=== PATIENT | female | born 1990 | race Caucasian/White ===

== ENCOUNTER 2016-09-25 16:32 | Emergency (ER) | payer SELFPAY ==
[2016-09-25 17:57] VITALS: BP 125/74
--- NOTE | 2016-09-25 18:27 | UC ---
Upper Extremity HPI - HPI Summary HPI Summary: The patient comes in today for: 1. 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 Palliative/provocative: Not moving it makes it better. 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 Quality: Dull at times, and stabbing at times. Region: Mid elbow all the way down to her ring finger. Severity: 08/19 Time: Constant Associated symptoms: Tingling: present from the ring finger up to the elbow. 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 This patient movement resulted in a "sudden jolt" of the left arm back towards her putting the elbow in flexion. Previous injuries: NOne. 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 Hx Last Menstrual Period: 08/27/16 - Allergies/Home Medications Allergies/Adverse Reactions: Allergies Allergy/AdvReac Type Severity Reaction Status Date / Time Hydrocodone Allergy Severe HALLUCINATIONS, Verified 09/25/16 17:50 VOMITING Oxycodone Allergy Severe HALLUCINATIONS, Verified 09/25/16 17:50 VOMITING Home Medications: Home Medications Ascorbic Acid [C 500] 500 mg PO DAILY 09/25/16 [History Confirmed 09/25/16] Multiple Vitamins W/ Minerals [Multivitamin Adults] 1 tab PO DAILY 09/25/16 [ History Confirmed 09/25/16] PMH/Surg Hx/FS Hx/Imm Hx Previously Healthy: Yes Endocrine History Of: Denies: Diabetes, Thyroid Disease, Hyperthyroidism, Hypothyroidism, Dyslipidemia Cardiovascular History Of: Reports: Cardiac Disorders - Benign heart murmur. Echo done 2-3 years ago--all "benign." Denies: Hypertension, Pacemaker/ICD, Myocardial Infarction, Congestive Heart Failure, Atrial Fibrillation, Deep Vein Thrombosis, Bleeding Disorders Respiratory History Of: Denies: COPD, Asthma, Bronchitis, Pneumonia, Pulmonary Embolism GI/ History Of: Denies: Gastroesophageal Reflux, Ulcer, Gastrointestinal Bleed, Gall Bladder Disease, Kidney Stones, Diverticulitis, Renal Disease, Urosepsis Neurological History Of: Denies: TIA, CVA, Dementia, Seizures, Migraine Psychological History Of: Denies: Anxiety, Depression, Bipolar Disorder, Schizophrenia, Post Traumatic Stress Disorder Cancer History Of: Denies: Lung Cancer, Colorectal Cancer, Breast Cancer, Prostate Cancer, Cervical Cancer Other History Of: Negative For: HIV, Hepatitis B, Hepatitis C, Anticoagulant Therapy - Surgical History Surgical History: Yes Surgery Procedure, Year, and Place: TONSILLECTOMY, WISDOM TEETH EXTRACTIONS - Family History Known Family History: Negative: Cardiac Disease, Hypertension - Social History Occupation: Employed Full-time Alcohol Use: Occasionally Substance Use Type: None Smoking Status (MU): Never Smoked Tobacco Review of Systems Constitutional: Negative Skin: Negative Eyes: Negative ENT: Negative Respiratory: Negative Cardiovascular: Negative Gastrointestinal: Negative Genitourinary: Negative Musculoskeletal: Arthralgia All Other Systems Reviewed And Are Negative: Yes Physical Exam Triage Information Reviewed: Yes Appearance: Well-Appearing, No Pain Distress, Well-Nourished Vital Signs: Initial Vital Signs Temp 98.6 F 09/25/16 17:51 Pulse 76 09/25/16 17:51 Resp 20 09/25/16 17:51 BP 125/74 09/25/16 17:51 Pulse Ox 98 09/25/16 17:51 Eyes: Positive: Conjunctiva Clear. Negative: Discharge ENT: Positive: Hearing grossly normal. Negative: Pharyngeal erythema, Nasal congestion, Nasal drainage, TM bulging, TM dull, TM red, Tonsillar swelling, Tonsillar exudate Dental: Negative: Gross Decay/Caries @, Dental Fracture @ Neck: Negative: Supple, Nontender, No Lymphadenopathy, Nuchal Rigidity Respiratory: Positive: Chest non-tender, Lungs clear, No respiratory distress, No accessory muscle use. Negative: Crackles, Wheezing Cardiovascular: Positive: RRR, No Murmur, Pulses Normal Abdomen Description: Positive: Nontender, No Organomegaly, Soft. Negative: Distended, Guarding Musculoskeletal: Positive: Strength Intact, ROM Intact, No Edema, Other: - Left arm: No deformity or misalignment. There is no ecchymosis or erthema. There is full range of motion of the wrist and elbow. There is tednerness of the olecranon bursa and slight tenderness of palpation of the medial and lateral epicondyle. There radial pulse is 2+/2 x 2. DTR were 1+/2 x 2 bilaterally for the triceps, biceps, and brachioradialis. Surface To Air Weapons Officer strength was slightly less on the left. The thumb-enclosed fist, "OK" sign and "thumbs-up" sign were all normal. Neurological: Positive: Alert, Muscle Tone Normal Psychological: Positive: Age Appropriate Behavior, Consolable Skin: Negative: rashes, breakdown Upper Extremity Course/Dx - Course Course Of Treatment: Patient was told that she has symptoms of multiple problems (olecranon bursitis, medial and lateral epicondyllitis, CTS and possibly Ulnar tunnel syndrome). But, she was told to try a cock-up splint and NSAIDS with a repeat evaluation in 3 days. - Differential Dx/Diagnosis Differential Diagnosis/HQI/PQRI: Contusion Provider Diagnoses: Left arm pain, weakness (olecranon bursitis, medial and lateral epicondylitis, carpal tunnel syndrome). Discharge - Discharge Plan Condition: Stable Disposition: HOME Patient Education Materials: Elbow Bursitis (ED), Tendinitis (ED) Forms: *Work Release Referrals: Gia Santo PA [Primary Care Provider] - 1 Week (See your primary care provider or us after several days to about a week to see how well you are doing. If you get worse please be seen sooner.)
== END 2016-09-25 19:11 | disposition home or self-care (01) ==
LOC: UCCORT 16:32
DX: M79.602 Pain in left arm (principal); R53.1 Weakness; R01.1 Cardiac murmur, unspecified
CPT/HCPCS: 99213; G0463

== ENCOUNTER 2016-09-29 20:14 | Emergency (ER) | payer SELFPAY ==
[2016-09-29 20:43] VITALS: BP 118/69
--- NOTE | 2016-09-29 21:53 | RAD ---
INDICATION: Left elbow injury COMPARISON: None TECHNIQUE: AP, lateral, and oblique views were obtained. FINDINGS: The bony structures, joint spaces, and soft tissues are normal for age. IMPRESSION: NEGATIVE EXAMINATION.
--- NOTE | 2016-09-29 21:54 | RAD ---
INDICATION: Left wrist injury COMPARISON: None TECHNIQUE: AP, lateral, and oblique views were obtained. FINDINGS: There is no acute fracture or dislocation. There is no appreciable soft tissue swelling. Incidental note is made of a mild ulnar minus variant. IMPRESSION: NO ACUTE BONY FINDINGS.
--- NOTE | 2016-09-29 22:08 | UC ---
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 PAIN IN ELBOW AND WRIST HAVE NOT IMPROVED SINCE TIME OF INJURY AND WITH IMMOBILIZATION WITH SPLINT. - History of Current Complaint Chief Complaint: UCUpperExtremity Stated Complaint: LEFT HAND WEAKNESS WC RECHECK Time Seen by Provider: 09/29/16 20:54 Hx Obtained From: Patient, Family/Olive Pitter Hx Last Menstrual Period: 08/27/16 Onset/Duration: Sudden Onset, Lasting Days, Still Present Onset Of Pain: Post Accident Severity Initially: Moderate Severity Currently: Moderate Mechanism Of Injury: Twisted Aggravating Factor(s): Movement Alleviating Factor(s): Compression, Ice, Rest Associated Signs And Symptoms: Positive: Swelling Related History: Positive: Occupational Injury - Risk Factors Penetrating Injury Risk Factors: Negative - Allergies/Home Medications Allergies/Adverse Reactions: Allergies Allergy/AdvReac Type Severity Reaction Status Date / Time Hydrocodone Allergy Severe HALLUCINATIONS, Verified 09/29/16 20:34 VOMITING Oxycodone Allergy Severe HALLUCINATIONS, Verified 09/29/16 20:34 VOMITING PMH/Surg Hx/FS Hx/Imm Hx Previously Healthy: Yes Endocrine History Of: Denies: Diabetes, Thyroid Disease, Hyperthyroidism, Hypothyroidism, Dyslipidemia Cardiovascular History Of: Reports: Cardiac Disorders - Benign heart murmur. Echo done 2-3 years ago--all "benign." Denies: Hypertension, Pacemaker/ICD, Myocardial Infarction, Congestive Heart Failure, Atrial Fibrillation, Deep Vein Thrombosis, Bleeding Disorders Respiratory History Of: Denies: COPD, Asthma, Bronchitis, Pneumonia, Pulmonary Embolism GI/ History Of: Denies: Gastroesophageal Reflux, Ulcer, Gastrointestinal Bleed, Gall Bladder Disease, Kidney Stones, Diverticulitis, Renal Disease, Urosepsis Neurological History Of: Denies: TIA, CVA, Dementia, Seizures, Migraine Psychological History Of: Denies: Anxiety, Depression, Bipolar Disorder, Schizophrenia, Post Traumatic Stress Disorder Cancer History Of: Denies: Lung Cancer, Colorectal Cancer, Breast Cancer, Prostate Cancer, Cervical Cancer Other History Of: Negative For: HIV, Hepatitis B, Hepatitis C, Anticoagulant Therapy - Surgical History Surgical History: Yes Surgery Procedure, Year, and Place: TONSILLECTOMY, WISDOM TEETH EXTRACTIONS - Family History Known Family History: Positive: None Negative: Cardiac Disease, Hypertension - Social History Occupation: Employed Full-time Lives: With Family Alcohol Use: Occasionally Substance Use Type: None Smoking Status (MU): Never Smoked Tobacco Review of Systems Constitutional: Negative Skin: Negative Eyes: Negative ENT: Negative Respiratory: Negative Cardiovascular: Negative Gastrointestinal: Negative Genitourinary: Negative Motor: Negative Neurovascular: Negative Musculoskeletal: Arthralgia, Myalgia Neurological: Negative Psychological: Negative All Other Systems Reviewed And Are Negative: Yes Physical Exam Triage Information Reviewed: Yes Appearance: Well-Appearing, No Pain Distress, Well-Nourished Vital Signs: Initial Vital Signs Temp 98.5 F 09/29/16 20:35 Pulse 86 09/29/16 20:35 Resp 16 09/29/16 20:35 BP 118/69 09/29/16 20:35 Pulse Ox 99 09/29/16 20:35 Vital Signs Reviewed: Yes Eye Exam: Normal ENT Exam: Normal ENT: Positive: Normal ENT inspection Dental Exam: Normal Neck exam: Normal Respiratory Exam: Normal Respiratory: Positive: Chest non-tender, Lungs clear, Normal breath sounds, No respiratory distress Cardiovascular Exam: Normal Cardiovascular: Positive: RRR, No Murmur, Pulses Normal Abdominal Exam: Normal Musculoskeletal: Positive: Strength Limited @ - 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 LEFT WRIST SPRAIN Discharge - Discharge Plan Condition: Stable Disposition: HOME Patient Education Materials: Cubital Tunnel Syndrome (ED), Tendinitis (ED) Forms: *Work Release Referrals: Jamie Henry MD [Medical Doctor] - Reva Ayala MD [Medical Doctor] - DEACON Preston [Primary Care Provider] - Additional Instructions: PHYSICAL THERAPY REFERRAL: You have been prescribed physical therapy. Treatments may include stretching, exercise, application of heat or cold, and other modalities. After an injury, PT can reduce swelling and pain. In recovery, PT is used to restore mobility and strength. Your specific treatment goals are: ___X__ Reduction of Swelling (EGS, US, ice as needed) ___X__ Pain Reduction (EGS, US, ice as needed) TENS Pack Fitting and Instruction Wound Hydrotherapy ___X__ Preservation of Mobility ___X__ Latter-Day of Mobility ___X__ Strength Latter-Day ___X__ Work or Sports Hardening This instruction sheet also serves as your PHYSICAL THERAPY REFERRAL! Please take it with you to the therapist, so he/she will be aware of your diagnosis and treatment plan. You may see the physical therapist of your choice for these treatments, but may wish to check with your insurance to be sure the provider you select is covered. It's important to see the doctor to whom you have been referred for follow up.
== END 2016-09-29 22:05 | disposition home or self-care (01) ==
LOC: UCCORT 20:14
DX: M77.12 Lateral epicondylitis, left elbow (principal); S63.502A Unspecified sprain of left wrist, initial encounter; X50.0XXA Overexertion from strenuous movement or load, initial encounter; Y93.F2 Activity, caregiving, lifting; Y92.230 Patient room in hospital as the place of occurrence of the external cause; Y99.0 Civilian activity done for income or pay
CPT/HCPCS: 84702; 99211; G0463

== ENCOUNTER 2017-08-25 06:14 | Day surgery (SDC) | payer OTHER ==
[~2017-08-25 06:14] MED LIST: Acetaminophen TAB* 325 MG PO PRN; Buffered Lidocaine 0.9% SYRIN* 5 ML/SYR SYRINGE INTRADERM ONE; DiMENhydriNATE IV* 50 MG/ML VIAL IV PUSH PRN; Famotidine TAB* 20 MG PO ONE; Morphine INJ* 2 MG/ML 1 ML CARPUJECT IV PRN; Naloxone* 0.4 MG/ML 1 ML VIAL IV PRN; PROCHLORPERAZINE INJ 5 MG/ML 2 ML VIAL IV PRN; Scopolamine 1.5 mg* PATCH TRANSDERM ONE; fentaNYL* 50 MCG/ML 2 ML VIAL (100 MCG VIAL) IV PRN
[2017-08-25] MEDS ORDERED: Famotidine TAB* 20 MG ONE (06:17)
[2017-08-25] MEDS ORDERED: Scopolamine 1.5 mg* PATCH ONE (06:17)
[2017-08-25] MEDS ORDERED: ceFAZolin 2 GM PREMIX (*) 2 GM/50 ML BAG IVPB ONE (06:17)
[2017-08-25] MEDS ORDERED: Bupivacaine 0.25% SDV* 30 ML ONE (06:45)
[2017-08-25] MEDS ORDERED: Midazolam* 1 MG/ML 5 ML VIAL (5 MG) ONE (07:17)
[2017-08-25] MEDS ORDERED: fentaNYL* 50 MCG/ML 2 ML VIAL (100 MCG VIAL) ONE ×2 (07:17→07:42)
[2017-08-25] MEDS ORDERED: Ondansetron INJ* 2 MG/ML VIAL ONE (07:53)
[2017-08-25] MEDS ORDERED: Propofol* 10 MG/ML 20 ML BTL IV PUSH ONE (07:53)
[2017-08-25] MEDS ORDERED: Dexamethasone IV* 4 MG/ML 1 ML (4 MG) ONE (07:53)
[2017-08-25] MEDS ORDERED: Ketorolac INJ* 30 MG/ML 1 ML VIAL ONE (07:53)
[2017-08-25] MEDS ORDERED: PROCHLORPERAZINE INJ 5 MG/ML 2 ML VIAL ONE (07:53)
[2017-08-25] MEDS ORDERED: Lidocaine 2% PF * 5 ML VIAL ONE (07:53)
[2017-08-25] MEDS ORDERED: traMADol TAB* 50 MG ONE (08:17)
[2017-08-25 09:08] VITALS: BP 120/67
--- NOTE | 2017-08-25 09:28 | OP ---
OPERATIVE REPORT: DATE OF OPERATION: 08/25/17 DATE OF : [birth year] SURGEON: Baldomero Tellez MD PRESIDENT & FOUNDER: CRISTIANA Guevara An entry level administrative assistant was needed for the procedure to aid in positioning of the arm and retraction. ANESTHESIOLOGIST: Dr. Giordano. ANESTHESIA: General. PRE-OP DIAGNOSIS: Left cubital tunnel syndrome. POST-OP DIAGNOSIS: Left cubital tunnel syndrome. OPERATIVE PROCEDURE: Left in situ cubital tunnel release. INDICATIONS: Ana Luisa is 27. She has had pretty severe ulnar nerve symptoms affecting consisting of pos teromedial elbow pain that radiates down into the ulnar 2 digits with significant numbness and tingli ng in those 2 fingers. We had talked about her treatment options. She wants to proceed with the dec ompression. She understands risks and benefits and risk of nerve injury and wound problems as well a s recurrent symptoms. ESTIMATED BLOOD LOSS: 2 mL. COMPLICATIONS: None. FINDINGS: As expected. DESCRIPTION OF PROCEDURE: Ana Luisa was seen in the preoperative holding area. The correct side, site, a nd procedure were identified. We came back to the operating room, where the arm was prepped and drap ed in the usual fashion. A time-out was performed. The arm was exsanguinated with the Esmarch and the tourniquet was inflated to 250 mmHg. I made a cur vilinear incision centered over Johnston's ligament. Dissection was carried down with the Bovie and t he knife and tenotomy scissors. The medial antebrachial cutaneous nerve was identified and protected throughout the case. I then started the decompression just proximal to Johnston's ligament and exten ded it proximally, placed in an appendiceal for proximal retraction. The fascia overlying the nerve was released to all past the arcade of [place]. I then came distally and released Johnston's ligame nt and released the superficial FCU fascia. The 2 edges of the FCU were split and then the subfacial layer was released throughout in its entirety. There was a vascular arcade that traverse the nerve and origin of the FCU fascia which I mobilized and cauterized. Once the nerve release was complete a nd there was absolutely no compression on the nerve, I performed a slight neurolysis to mobilize it f rom the adherent fascial tissue surrounding it. I then flexed and extended the elbow, it did not sub luxate, so we irrigated out the wound. Hemostasis was obtained with the Bovie. The subcutaneous tiss ue was reapproximated with 3-0 Vicryl. Skin was closed with 3-0 Monocryl and Steri-Strips. The woun d was infiltrated with 0.25% plain Marcaine and then the wound was dressed with Xeroform, 4x4, ABD st erile Webril, and BRAYDON bandages. She was woke up and taken to the recovery room in stable condition. [id number] #: [id number]
[2017-08-28] MEDS ORDERED: Scopolamine PATCH Remove* 1 NOTE MISC PATCH OFF ONE (06:00)
== END 2017-08-25 09:31 | disposition home or self-care (01) ==
LOC: OR 06:14
PROVIDERS: ATTEND Orthopaedic Surgery Hand Surgery
DX: G56.22 Lesion of ulnar nerve, left upper limb (principal)
CPT/HCPCS: 81025; A9270-GY; J0690; J0780; J1100; J1885; J2250; J2405; J2704; J3010

== ENCOUNTER 2018-04-14 09:05 | Emergency (ER) | payer BC, OTHER ==
[2018-04-14 09:51] VITALS: BP 132/78
--- NOTE | 2018-04-14 10:34 | UC ---
Abdominal Pain Female HPI - HPI Summary HPI Summary: nausea and vomiting x 3 days no fever, + chills, diarrhea , no constipation no more vomiting , cont. to have diarrhea no abdominal pain , no urinary symptoms - History of Current Complaint Chief Complaint: UCGI Stated Complaint: NAUSEA,VOMITTING,DIARRHEA Time Seen by Provider: 04/14/18 09:51 Hx Obtained From: Patient Hx Last Menstrual Period: 03/26/18 ?: No Onset/Duration: Gradual Onset, Lasting Days - 3, Still Present Timing: Constant Severity Initially: Moderate Severity Currently: Moderate Pain Intensity: 0 Pain Scale Used: 0-10 Numeric Location: Diffuse Radiates: No Character: Cramping Aggravating Factor(s): Food Alleviating Factor(s): Nothing Associated Signs and Symptoms: Positive: Nausea, Vomiting, Diarrhea. Negative: Diaphoresis, Fever, Cough, Chest Pain, Dizzy, Back Pain, Constipation Allergies/Adverse Reactions: Allergies Allergy/AdvReac Type Severity Reaction Status Date / Time hydrocodone Allergy HALLUCINATIONS, Verified 04/14/18 09:48 VOMITING oxycodone Allergy HALLUCINATIONS, Verified 04/14/18 09:48 VOMITING PMH/Surg Hx/FS Hx/Imm Hx Previously Healthy: Yes Other History Of: Negative For: HIV, Hepatitis B, Hepatitis C, Anticoagulant Therapy - Surgical History Surgical History: Yes Surgery Procedure, Year, and Place: TONSILLECTOMY, WISDOM TEETH EXTRACTIONS. MOLE REMOVAL WITH LOCAL ANESTHESIA. left ulnar nerves surgery - Family History Known Family History: Positive: None Negative: Cardiac Disease, Hypertension - Social History Alcohol Use: Occasionally Substance Use Type: None Smoking Status (MU): Never Smoked Tobacco Have You Smoked in the Last Year: No Review of Systems All Other Systems Reviewed And Are Negative: Yes Constitutional: Positive: Negative Skin: Positive: Negative Eyes: Positive: Negative ENT: Positive: Negative Respiratory: Positive: Negative Gastrointestinal: Positive: Negative, Vomiting, Diarrhea, Nausea Genitourinary: Positive: Negative Is Patient Immunocompromised?: No Physical Exam Triage Information Reviewed: Yes Appearance: Well-Appearing, No Pain Distress, Well-Nourished Vital Signs: Initial Vital Signs Temp 97.8 F 04/14/18 09:46 Pulse 78 04/14/18 09:46 Resp 15 04/14/18 09:46 BP 132/78 04/14/18 09:46 Pulse Ox 98 12/04/18 09:46 Vital Signs Reviewed: Yes Eye Exam: Normal Eyes: Positive: Conjunctiva Clear ENT: Positive: Normal ENT inspection, Hearing grossly normal, Pharynx normal Neck: Positive: Supple, Nontender, No Lymphadenopathy Respiratory: Positive: Chest non-tender, Lungs clear, Normal breath sounds, No respiratory distress Cardiovascular: Positive: RRR, No Murmur, Pulses Normal Abdomen Description: Positive: Nontender, Soft. Negative: CVA Tenderness (R), CVA Tenderness (L), Distended, Guarding Bowel Sounds: Positive: Present Skin Exam: Normal Abd Pain Female Course/Dx - Differential Dx/Diagnosis Provider Diagnosis: Gastroenteritis Discharge - Sign-Out/Discharge Documenting (check all that apply): Patient Departure All imaging exams completed and their final reports reviewed: No Studies - Discharge Plan Condition: Stable Disposition: HOME Patient Education Materials: Acute Diarrhea (ED) Forms: *Work Release Referrals: Radha Anne [Primary Care Provider] - If Needed - Billing Disposition and Condition Condition: STABLE Disposition: Home
== END 2018-04-14 10:02 | disposition home or self-care (01) ==
LOC: UCCORT 09:05
DX: K52.9 Noninfective gastroenteritis and colitis, unspecified (principal); Z88.5 Allergy status to narcotic agent
CPT/HCPCS: 99211; G0463

== ENCOUNTER 2019-05-07 16:26 | Emergency (ER) | payer BC, OTHER ==
[2019-05-07 18:03] VITALS: BP 124/70
--- NOTE | 2019-05-07 18:09 | UC ---
Head Injury HPI - HPI Summary HPI Summary: Today 1415 pt hit top of head on metal part of oxygen gauge/suction at work. Pt c/o feeling headache, nausea and dizzy since head injury; dizzyness worse w/ movement. Nothing taken for pain. - History Of Current Complaint Chief Complaint: UCHeadInjury Stated Complaint: HEAD INJURY Time Seen by Provider: 05/07/19 18:07 Hx Obtained From: Patient Hx Last Menstrual Period: 04/26/19 ?: No Onset/Duration: Sudden Onset, Lasting Hours Severity Currently: Moderate Severity Initially: Moderate Pain Intensity: 4 Associated Signs And Symptoms: Positive: Nausea - Allergies/Home Medications Allergies/Adverse Reactions: Allergies Allergy/AdvReac Type Severity Reaction Status Date / Time hydrocodone Allergy HALLUCINATIONS, Verified 05/07/19 17:57 VOMITING oxycodone Allergy HALLUCINATIONS, Verified 05/07/19 17:57 VOMITING Home Medications: Home Medications NK [No Home Medications Reported] 05/07/19 [History Confirmed 05/07/19] PMH/Surg Hx/FS Hx/Imm Hx Previously Healthy: Yes Other History Of: Negative For: HIV, Hepatitis B, Hepatitis C, Anticoagulant Therapy - Surgical History Surgical History: Yes Surgery Procedure, Year, and Place: TONSILLECTOMY, WISDOM TEETH EXTRACTIONS. MOLE REMOVAL WITH LOCAL ANESTHESIA. left ulnar nerves surgery - Family History Known Family History: Positive: None Negative: Cardiac Disease, Hypertension - Social History Alcohol Use: Occasionally Substance Use Type: None Smoking Status (MU): Never Smoked Tobacco Have You Smoked in the Last Year: No Review of Systems All Other Systems Reviewed And Are Negative: Yes Gastrointestinal: Positive: Nausea Neurological: Positive: Headache Is Patient Immunocompromised?: No Physical Exam Triage Information Reviewed: Yes Appearance: Well-Nourished, Ill-Appearing, Pain Distress Vital Signs: Initial Vital Signs Temp 97.4 F 05/07/19 17:58 Pulse 74 05/07/19 17:58 Resp 16 05/07/19 17:58 BP 124/70 05/07/19 17:58 Pulse Ox 97 05/07/19 17:58 Vital Signs Reviewed: Yes Eye Exam: Normal ENT Exam: Normal Dental Exam: Normal Neck exam: Normal Respiratory Exam: Normal Respiratory: Positive: Chest non-tender, Lungs clear, Normal breath sounds Cardiovascular Exam: Normal Abdominal Exam: Normal Musculoskeletal Exam: Normal Neurological Exam: Other - positive Rhomberg, PERRLA, EMOI intact but movements increase nausea. pain on the top of the head, no cervical tenderness. cranial nerves intact Psychological Exam: Normal Skin Exam: Normal Head Injury Course/Dx - Course Course Of Treatment: hx btained, exam performed ,meds reviewed, patient exam was positive for signs and symptoms of concussion. advised to take next few days off and follow up with [facility] medicine concussion clinic if not improving. - Differential Dx/Diagnosis Differential Diagnosis/HQI/PQRI: Concussion Without LOC Provider Diagnosis: Concussion Discharge ED - Sign-Out/Discharge Documenting (check all that apply): Patient Departure All imaging exams completed and their final reports reviewed: No Studies - Discharge Plan Condition: Stable Disposition: HOME Patient Education Materials: Concussion (ED) Forms: *Work Release Referrals: Tamiko Busch MD [Primary Care Provider] - Additional Instructions: 1. take the time off you need to recover. I have given a note for the next 48 hours. 2. Any signs and symptoms beyond the 48 hours please follow up with the Concussion clinic at sports medicine 3. dark quiet space, no screen time, rest. 4. Follow up in ER if symtpoms worsen in the next 48 hours - Billing Disposition and Condition Condition: STABLE Disposition: Home
== END 2019-05-07 18:39 | disposition home or self-care (01) ==
LOC: UCCORT 16:26
DX: S06.0X0A Concussion without loss of consciousness, initial encounter (principal); Z88.5 Allergy status to narcotic agent; W22.09XA Striking against other stationary object, initial encounter; Y92.9 Unspecified place or not applicable; Y99.0 Civilian activity done for income or pay
CPT/HCPCS: 99212; G0463

== ENCOUNTER 2019-07-22 08:45 | Day surgery (SDC) | payer BC, OTHER ==
[~2019-07-22 08:45] MED LIST changes: +Acetaminophen TAB* 325 MG ONE; +Acetaminophen TAB* 325 MG PO ONE; -Acetaminophen TAB* 325 MG PO PRN; -Buffered Lidocaine 0.9% SYRIN* 5 ML/SYR SYRINGE INTRADERM ONE; +Buffered Lidocaine 1% SYRIN* 1 ML/SYRINGE INTRADERM ONE; -DiMENhydriNATE IV* 50 MG/ML VIAL IV PUSH PRN; +Famotidine IV* 10 MG/ML 2 ML (20 mg) IV ONE; +Famotidine IV* 10 MG/ML 2 ML (20 mg) ONE; -Famotidine TAB* 20 MG PO ONE; +Gabapentin CAP(*) 300 MG ONE; +Gabapentin CAP(*) 300 MG PO ONE; +Lactated Ringers 1000 ML Bag* 1,000 ML IV SCH; -Morphine INJ* 2 MG/ML 1 ML CARPUJECT IV PRN; -Naloxone* 0.4 MG/ML 1 ML VIAL IV PRN; -PROCHLORPERAZINE INJ 5 MG/ML 2 ML VIAL IV PRN; -Scopolamine 1.5 mg* PATCH TRANSDERM ONE; -fentaNYL* 50 MCG/ML 2 ML VIAL (100 MCG VIAL) IV PRN
[2019-07-22] MEDS ORDERED: ceFAZolin 2 GM PREMIX in ORs 2 GM/50 ML BAG ONE (08:55)
[2019-07-22] MEDS ORDERED: Scopolamine 1.5 mg* PATCH ONE (09:11)
[2019-07-22] MEDS ORDERED: diPHENhydraMINE IV* 50 MG/ML 1 ml VIAL (BENADRYL) IV PRN (09:16)
[2019-07-22] MEDS ORDERED: DiMENhydriNATE IV* 50 MG/ML VIAL IV PUSH PRN (09:16)
[2019-07-22] MEDS ORDERED: Levalbuterol 0.63MG/3ML NEB* UNIT OF USE INH PRN (09:16)
[2019-07-22] MEDS ORDERED: Naloxone* 0.4 MG/ML 1 ML VIAL IV PRN (09:16)
[2019-07-22] MEDS ORDERED: Ondansetron INJ* 2 MG/ML VIAL IV PRN (09:16)
[2019-07-22] MEDS ORDERED: PROCHLORPERAZINE INJ 5 MG/ML 2 ML VIAL IV PRN (09:16)
[2019-07-22] MEDS ORDERED: Midazolam* 1 MG/ML 2 ML VIAL (2 MG) ONE (09:28)
[2019-07-22] MEDS ORDERED: fentaNYL* 50 MCG/ML 2 ML VIAL (100 MCG VIAL) ONE ×4 (09:28→12:01)
[2019-07-22] MEDS ORDERED: Bupivacaine 0.25% SDV* 30 ML ONE (09:52)
[2019-07-22] MEDS ORDERED: Scopolamine 1.5 mg* PATCH TRANSDERM SCH (10:00)
[2019-07-22] MEDS ORDERED: Scopolamine PATCH Remove* 1 NOTE MISC PATCH OFF SCH (10:00)
[2019-07-22] MEDS ORDERED: Lidocaine 2% PF * 5 ML VIAL ONE (10:14)
[2019-07-22] MEDS ORDERED: Ketorolac INJ* 30 MG/ML 1 ML VIAL ONE (10:24)
[2019-07-22] MEDS ORDERED: Ondansetron INJ* 2 MG/ML VIAL ONE (10:24)
[2019-07-22] MEDS ORDERED: Dexamethasone IV* 4 MG/ML 1 ML (4 MG) ONE (10:24)
[2019-07-22] MEDS ORDERED: Propofol* 10 MG/ML 20 ML BTL ONE (10:24)
[2019-07-22] MEDS ORDERED: traMADol TAB* 50 MG ONE (11:47)
[2019-07-22] MEDS: fentaNYL* 50 MCG/ML 2 ML VIAL (100 MCG VIAL) IV PRN ×3 (11:53→12:45)
[2019-07-22 13:37] VITALS: BP 117/64
--- NOTE | 2019-07-22 21:58 | OP ---
DATE OF OPERATION: 07/22/19 - [facility] DATE OF : 89 SURGEON: Baldomero Tellez MD. SHELLFISH MEAT SEPARATOR OPERATOR: CRISTIANA Guevara. An video production assistant was needed for the procedure to aid in positioning of the arm and retraction. ANESTHESIOLOGIST: Dr. Machado. ANESTHESIA: General. PRE-OP DIAGNOSIS: Left ulnar nerve neuritis and instability, status post prior in situ decompression. POST-OP DIAGNOSIS: Left ulnar nerve neuritis and instability, status post prior in situ decompression. OPERATIVE PROCEDURE: Left ulnar nerve anterior transmuscular transposition. INDICATIONS: Ms. Thomas had an in situ decompression. She has gone on to have painful instability and neuritis in the nerve. We talked about treatment options. I told her the treatment for this is to revise it, do a transposition. She understands there are risks associated with this and she wants to proceed with surgery. She understands she could have persistent neuritis or ulnar nerve injury or other complications. ESTIMATED BLOOD LOSS: 2 mL. COMPLICATIONS: None. FINDINGS: See above and below. DESCRIPTION OF PROCEDURE: Ms. Thomas was seen in the preoperative holding area. The correct side, site, and procedure were identified. We came back to the operating room. The arm was prepped and draped in the usual fashion and a time-out was performed. The arm was exsanguinated with the Esmarch and the tourniquet was inflated. I utilized her prior incision and made it just a little longer proximally and distally. Dissection was carried down through the subcutaneous tissue. The medial antebrachial cutaneous nerve was identified and protected throughout. The nerve was seen draped over and pursed up and draped over the medial epicondyle. I started the decompression proximally. I went ahead and released the fascia overlying the nerve past the arcade of Swink and it from the scar tissue and did that all the way down through the two heads of the FCU and through the subfascial layer of the FCU, which was very scarred. The medial intermuscular septum was then excised. The leading edge of the FCU fascia was excised. I went ahead and raised stepcut fascial flaps in the flexor pronator fascia and excised the muscular septi. I placed a vessel loop around the ulnar nerve and performed a full neurolysis. Once I had that done and the nerve mobilized, I transposed the nerve up into the appropriate position. I did have to dissect out the motor branches a little to gain length. I went ahead and sewed the two ends of my fascial flap end-to-end providing nice loose fascial sleeve to hold the nerve up in the transposed position. At this point, everything was looking very good. There was no kinking of the nerve, it was set in a very nice position. Hemostasis had been obtained with the Bovie and the bipolar. The wound was irrigated out. Subcutaneous tissue was reapproximated with 3-0 Vicryl and the skin was closed with 3-0 Monocryl and Steri-Strips. 0.25% Marcaine was infiltrated all about the operative area. She was placed in a long-arm splint with a lateral buttress and taken to the recovery room in stable condition. [id number] #: [id number] MTDD
== END 2019-07-22 13:48 | disposition home or self-care (01) ==
LOC: OREAST 08:45
PROVIDERS: ATTEND Orthopaedic Surgery Hand Surgery
DX: G56.22 Lesion of ulnar nerve, left upper limb (principal); Z88.5 Allergy status to narcotic agent
CPT/HCPCS: A9270-GY; J0690; J1100; J1885; J2250; J2405; J2704; J3010; J3490

== ENCOUNTER 2021-11-02 18:15 | Inpatient (IN) ==
[2021-11-02] MEDS ORDERED: Buffered Lidocaine 1% SYRIN 1 ml INTRADERM ONE (20:15)
[2021-11-02] MEDS ORDERED: Penicillin G Potassium IV 5,000,000 UNITS in NS 0.9% 100 ml BAG 100 ML IVPB ONE (20:15)
[2021-11-02] MEDS ORDERED: Lactated Ringers 1000 ml BAG 1,000 ML IV ONE (20:15)
[2021-11-02 21:22] LABS: ABS Lymphocytes 1.7 10^3/ul (1.0-4.8); ABS Monocytes 0.8 10^3/ul (0-0.8); ABS Neutrophils 8.8 10^3/ul (1.5-7.7); Eosinophil % 0.3 %; Hematocrit 33 % (35-47); Hemoglobin 11.7 g/dL (12.0-16.0); Mean Corpuscular HGB Conc 36 g/dL (31-36); Mean Corpuscular Hemoglobin 33 pg (27-31); Mean Corpuscular Volume 92 fL (80-97); Mean Platelet Volume 7.9 fL (7.4-10.4); Platelet Count 222 10^3/uL (150-450); Red Blood Count 3.59 10^6 /uL (3.70-4.87); Red Cell Distribution Width 13 % (10-15); White Blood Count 11.4 10^3/uL (3.5-10.8)
[2021-11-02 22:15] LABS: HIV 4th Generation Nonreactive (Nonreactive)
[2021-11-02 22:39] LABS: Urine Benzodiazepine Screen None Detected (None Detect); Urine Cannabinoids Screen None Detected (None Detect); Urine Opiates Screen None Detected (None Detect)
[2021-11-02] MEDS ORDERED: Lactated Ringers 1000 ml BAG 1,000 ML IV SCH (23:45)
[2021-11-02] MEDS ORDERED: Oxytocin in LR 20 UNITS/1,000 ML BAG IVPB SCH (23:45)
[2021-11-03] MEDS: Penicillin G Potassium IV 3,000,000 UNITS in NS 0.9% 100 ml BAG 100 ML IVPB SCH ×5 (01:20→18:20)
[2021-11-03] MEDS ORDERED: Lidocaine 1.5% EPI 1:200,000 30 ML SDV ONE (01:43)
[2021-11-03] MEDS ORDERED: OBEPIDURAL (200 ML) 200 ML EPIDURAL ONE (01:44)
[2021-11-03] MEDS ORDERED: Lactated Ringers 1000 ml BAG 1,000 ML IV ONE (03:09)
[2021-11-03] MEDS ORDERED: Lactated Ringers 1000 ml BAG 500 ML IV PRN ×2 (03:09)
[2021-11-03] MEDS ORDERED: Sodium Citrate/Citric Acid LIQ 15 ML UDC PO PRN (03:09)
[2021-11-03] MEDS ORDERED: Phenylephrine 40 mcg/mL 10mL (400mcg) SYRINGE IV PUSH PRN ×2 (03:09)
[2021-11-03 03:45] LABS: Urine Appearance Cloudy; Urine Bilirubin Negative (Negative); Urine Blood Negative (Negative); Urine Color Yellow; Urine Glucose Negative (Negative); Urine Ketones Negative (Negative); Urine Nitrite Negative (Negative); Urine Protein Negative (Negative); Urine Specific Gravity 1.014 (1.002-1.030); Urine Urobilinogen Negative (Negative)
[2021-11-03] MEDS ORDERED: OBEPIDURAL (200 ML) 200 ML EPIDURAL SCH (04:00)
[2021-11-03] MEDS ORDERED: Lactated Ringers 1000 ml BAG 1,000 ML IV SCH ×2 (04:00→21:00)
[2021-11-03] MEDS ORDERED: Witch Hazel PAD JAR TOPICAL PRN (20:11)
[2021-11-03] MEDS ORDERED: Dibucaine 1% OINT 28.35 GM TUBE PR PRN (20:11)
[2021-11-03] MEDS ORDERED: Glycerin ADULT 2.4 gm SUPP PR PRN (20:11)
[2021-11-03] MEDS ORDERED: RHO D Immune Globulin (HUMAN) 300 MCG = 1,500 I.U. INJ IM PRN (20:11)
[2021-11-03] MEDS ORDERED: Oxytocin in LR 20 UNITS/1,000 ML BAG IVPB SCH (21:00)
[2021-11-04 09:35] LABS: ABS Basophils 0.1 10^3/ul (0-0.2); ABS Lymphocytes 1.3 10^3/ul (1.0-4.8); ABS Monocytes 0.4 10^3/ul (0-0.8); Eosinophil % 0.3 %; Hematocrit 28 % (35-47); Hemoglobin 9.5 g/dL (12.0-16.0); Lymphocyte % 9.5 %; Mean Corpuscular HGB Conc 34 g/dL (31-36); Mean Corpuscular Hemoglobin 32 pg (27-31); Mean Corpuscular Volume 92 fL (80-97); Mean Platelet Volume 7.5 fL (7.4-10.4); Platelet Count 216 10^3/uL (150-450); Red Cell Distribution Width 14 % (10-15); White Blood Count 13.9 10^3/uL (3.5-10.8)
[2021-11-04] MEDS ORDERED: Lidocaine 1% MPF 5 ML VIAL ONE (18:37)
[2021-11-05 08:37] VITALS: BP 102/58
== END 2021-11-05 19:50 | disposition home or self-care (01) | DRG 560 ==
LOC: MCHOBOUT 18:15 → MCHOB 20:03
PROVIDERS: ADMIT Midwife; ATTEND Midwife

== ENCOUNTER 2021-12-23 05:18 | Observation (INO) ==
[2021-12-23] MEDS: Lactated Ringers 1000 ml BAG 1,000 ML IV ONE ×2 (06:04→07:30)
[2021-12-23] MEDS ORDERED: Ondansetron 4 mg VIAL 2 MG/ML 2 ml VIAL IV ONE (06:41)
[2021-12-23 06:58] LABS: Albumin 4.1 g/dL (3.2-5.2); Albumin/Globulin Ratio 2.2 (1-3); Calcium 8.3 mg/dL (8.6-10.3); Globulin 1.9 g/dL (2-4); Potassium 3.4 mmol/L (3.5-5.0); Total Bilirubin 2.1 mg/dL (0.2-1.0); eGFR CKD-EPI 125.1 (>60)
[2021-12-23 07:11] LABS: ABS Lymphocytes 1.2 10^3/ul (1.0-4.8); ABS Monocytes 0.6 10^3/ul (0-0.8); ABS Neutrophils 5.2 10^3/ul (1.5-7.7); Eosinophil % 0.2 %; Hematocrit 31 % (35-47); Hemoglobin 11.1 g/dL (12.0-16.0); Mean Corpuscular HGB Conc 36 g/dL (31-36); Mean Corpuscular Hemoglobin 32 pg (27-31); Mean Corpuscular Volume 89 fL (80-97); Mean Platelet Volume 7.8 fL (7.4-10.4); Platelet Count 238 10^3/uL (150-450); Red Blood Count 3.43 10^6 /uL (3.70-4.87); Red Cell Distribution Width 12 % (10-15)
[2021-12-23 09:44] LABS: Urine Appearance Clear; Urine Bilirubin Negative (Negative); Urine Blood Negative (Negative); Urine Color Straw; Urine Glucose Negative (Negative); Urine Ketones 1+ (15mg/dL) (Negative); Urine Protein Negative (Negative); Urine Specific Gravity <1.005 (1.005-1.030); Urine Urobilinogen 0.2 (Negative) (Negative)
[2021-12-23 09:45] LABS: Urine Nitrite Negative (Negative)
[2021-12-23] MEDS: D5W 1/2 NS 1000 ml BAG 1,000 ML IV SCH (18:26)
[2021-12-23] MEDS: Acetaminophen IV 1 GM/100ML 1,000 MG/100 ML BAG IV SCH (20:44)
[2021-12-24] MEDS: D5W 1/2 NS 1000 ml BAG 1,000 ML IV SCH ×2 (02:33→10:54)
[2021-12-24] MEDS: Acetaminophen IV 1 GM/100ML 1,000 MG/100 ML BAG IV SCH ×3 (02:44→15:43)
[2021-12-24 06:47] LABS: ABS Lymphocytes 1.2 10^3/ul (1.0-4.8); ABS Monocytes 0.7 10^3/ul (0-0.8); ABS Neutrophils 4.2 10^3/ul (1.5-7.7); Eosinophil % 0.5 %; Hematocrit 31 % (35-47); Hemoglobin 11.2 g/dL (12.0-16.0); Lymphocyte % 19.9 %; Mean Corpuscular HGB Conc 36 g/dL (31-36); Mean Corpuscular Hemoglobin 32 pg (27-31); Mean Corpuscular Volume 89 fL (80-97); Mean Platelet Volume 7.7 fL (7.4-10.4); Nucleated Red Blood Cells % 0.1; Platelet Count 237 10^3/uL (150-450); Red Blood Count 3.51 10^6 /uL (3.70-4.87); Red Cell Distribution Width 13 % (10-15); White Blood Count 6.2 10^3/uL (3.5-10.8)
[2021-12-24 07:07] LABS: Calcium 8.8 mg/dL (8.6-10.3); Potassium 3.5 mmol/L (3.5-5.0)
[2021-12-24 07:16] LABS: TSH Ultra Thyroid Stim Horm 3.97 mcIU/mL (0.34-5.60)
[2021-12-24 12:15] LABS: Albumin 3.8 g/dL (3.2-5.2); Globulin 1.9 g/dL (2-4); Total Bilirubin 1.2 mg/dL (0.2-1.0); Total Protein 5.7 g/dL (6.4-8.9)
[2021-12-24 12:27] VITALS: BP 111/66
== END 2021-12-24 18:30 | disposition home or self-care (01) ==
LOC: EDHOLD 05:18 → ED 05:18 → EDHOLD 21:52 → SSU 22:40
PROVIDERS: ADMIT Internal Medicine; ATTEND Internal Medicine